=== PATIENT | female | born 1970 | race Caucasian/White ===

== ENCOUNTER → 2016-10-19 16:47 | Outpatient (CLI) | payer OTHER ==
[2014-11-09 14:50] VITALS: BMI 48.4
[~2016-10-19 16:47] MED LIST: ATIVAN0.5 MG PO; BAYER CHEWABLE81 MG PO; HYDROCHLOROTHIA25 MG PO; IBUPROFEN600 MG PO; NORCO 10/325 TA1 TA1 PO; PERCOCET 5-3251 TAB PO; STOOL SOFTENER240 MG PO
== END | disposition home or self-care (01) ==
LOC: D.MAMMO 09-26 10:30
DX: R92.8 Other abnormal and inconclusive findings on diagnostic imaging of breast (principal)

== ENCOUNTER 2018-04-19 08:00 | Outpatient (CLI) | payer OTHER ==
[2014-11-09 14:50] VITALS: BMI 48.4
== END 2018-04-19 09:00 | disposition home or self-care (01) ==
LOC: D.MAMMO 08:00
DX: Z00.00 Encounter for general adult medical examination without abnormal findings (principal)

== ENCOUNTER 2019-04-10 09:00 | Outpatient (CLI) | payer OTHER ==
[2014-11-09 14:50] VITALS: BMI 48.4
== END 2019-04-10 10:00 | disposition home or self-care (01) ==
LOC: D.MAMMO 09:00
PROVIDERS: ATTEND Family Medicine
DX: Z12.31 Encounter for screening mammogram for malignant neoplasm of breast (principal)

== ENCOUNTER → 2019-06-10 20:00 | Outpatient (CLI) | payer OTHER ==
[2014-11-09 14:50] VITALS: BMI 48.4
== END | disposition home or self-care (01) ==
LOC: D.MAMMO 05-20 09:30
PROVIDERS: ATTEND Family Medicine
DX: R92.8 Other abnormal and inconclusive findings on diagnostic imaging of breast (principal); R92.2 Inconclusive mammogram